=== PATIENT | female | born 1985 | race Caucasian/White ===

== ENCOUNTER 2020-10-19 13:36 | Emergency (ER) | payer SELFPAY ==
[2020-10-19 13:59] VITALS: BP 113/52
[2020-10-19] MEDS ORDERED: ONDANSETRON 4 MG TAB.RAPDIS PO ONE (14:43)
[2020-10-19] MEDS ORDERED: ACETAMINOPHEN 325 MG TABLET PO ONE (14:43)
--- NOTE | 2020-10-19 14:44 | ER Document Report ---
HPI - HPI Time Seen by Provider: 10/19/20 14:38 Pain Level: 3 Past Medical History - Social History Smoking Status: Current Every Day Smoker Frequency of alcohol use: None Course - Vital Signs Vital signs: Temp Pulse Resp BP Pulse Ox 98.4 F 93 20 113/52 L 100 10/19/20 13:58 10/19/20 13:58 10/19/20 13:58 10/19/20 13:58 10/19/20 13:58
--- NOTE | 2020-10-19 14:51 | ER Document Report ---
ED Medical Screen (RME) - General Chief Complaint: Abdominal Pain Stated Complaint: ABDOMINAL PAIN Time Seen by Provider: 10/19/20 14:38 Mode of Arrival: Ambulatory Information source: Patient Notes: HPI; 34-year-old female presents to the emergency room complaining of reflux, headache, abdominal pain, nausea and fatigue for the past 2 weeks. Past medical history significant for Leann's. States she did 3 home test 3 days ago 2+ one negative. She is a 2 para 1. Last menstrual cycle September 14. States she is sexually active with no use of control. No OB care. Has been taking Benadryl with minimal relief. PE: Alert and oriented x3. Lungs: Clear to auscultation without rales, rhonchi, wheezes. Heart: Regular rate rhythm without murmurs, rubs, gallops. I have greeted and performed a rapid initial assessment of this patient. A comprehensive ED assessment and evaluation of the patient, analysis of test results and completion of the medical decision making process will be conducted by additional ED providers. I have specifically instructed the patient or family members with the patient to immediately return to any nursing staff should anything change in the patient's condition or with their chief complaint. TRAVEL OUTSIDE OF THE [place] IN LAST 30 DAYS: No - Related Data Allergies/Adverse Reactions: prochlorperazine [From Compazine] Allergy (Verified 10/19/20 14:37) Sulfa (Sulfonamide Antibiotics) Allergy (Verified 10/19/20 14:37) Past Medical History - Social History Frequency of alcohol use: None Physical Exam - Vital signs Vitals: Temp Pulse Resp BP Pulse Ox 98.4 F 93 20 113/52 L 100 10/19/20 13:58 10/19/20 13:58 10/19/20 13:58 10/19/20 13:58 10/19/20 13:58 Course - Vital Signs Vital signs: Temp Pulse Resp BP Pulse Ox 98.4 F 93 20 113/52 L 100 10/19/20 13:58 10/19/20 13:58 10/19/20 13:58 10/19/20 13:58 10/19/20 13:58
[2020-10-19 15:03] LABS: APPEARANCE,URINE CLEAR; BILIRUBIN,URINE NEGATIVE (NEGATIVE); COLOR,URINE YELLOW; GLUCOSE, URINE NEGATIVE (NEGATIVE); KETONES,URINE NEGATIVE (NEGATIVE); LEUKOCYTE ESTERASE,URINE TRACE (NEGATIVE); NITRITE,URINE NEGATIVE (NEGATIVE); PROTEIN,URINE NEGATIVE (NEGATIVE); URINE SPECIFIC GRAVITY 1.013; UROBILINOGEN,URINE NEGATIVE mg/dL (<2.0)
[2020-10-19 15:40] LABS: ABSOLUTE BASOPHILS # (AUTO) 0.1 10^3/uL (0.0-0.2); ABSOLUTE EOSINOPHILS # (AUTO) 0.2 10^3/uL (0.0-0.6); ABSOLUTE MONOCYTES (AUTO) 0.5 10^3/uL (0.1-1.4); ABSOLUTE NEUT (AUTO) 4.2 10^3/uL (1.7-8.2); BASOPHILS % (AUTO) 0.8 % (0-2); EOSINOPHILS % (AUTO) 2.4 % (0-6); HEMATOCRIT 35.7 % (36.0-47.0); HEMOGLOBIN 12.3 g/dL (12.0-15.5); LYMPHOCYTES % (AUTO) 28.9 % (13-45); MEAN CORPUSCULAR HEMOGLOBIN 31.5 pg (27.0-33.4); MEAN CORPUSCULAR HGB CONC 34.4 g/dL (32.0-36.0); MEAN CORPUSCULAR VOLUME 92 fl (80-97); MONOCYTES % (AUTO) 6.7 % (3-13); PLATELET COUNT 225 10^3/uL (150-450); RED BLOOD COUNT 3.89 10^6/uL (3.72-5.28); SEGMENTED NEUTROPHILS % (AUTO) 61.2 % (42-78); TOTAL CELLS COUNTED % (AUTO) 100 %; WHITE BLOOD COUNT 6.9 10^3/uL (4.0-10.5)
[2020-10-19 16:03] LABS: ALBUMIN 4.3 g/dL (3.5-5.0); ALKALINE PHOSPHATASE 50 U/L (38-126); ANION GAP 7 (5-19); ASPARTATE AMINO TRANSFERASE 22 U/L (14-36); BILIRUBIN,TOTAL 0.9 mg/dL (0.2-1.3); BLOOD UREA NITROGEN 9 mg/dL (7-20); CALCIUM 9.7 mg/dL (8.4-10.2); CARBON DIOXIDE 26 mmol/L (22-30); CHLORIDE 103 mmol/L (98-107); GLUCOSE 90 mg/dL (75-110); POTASSIUM 4.2 mmol/L (3.6-5.0); TOTAL PROTEIN 7.5 g/dL (6.3-8.2)
--- NOTE | 2020-10-19 16:44 | RADIOLOGY REPORT (SQ) ---
EXAM DESCRIPTION: U/S OB TRANSVAG W/DOPPLER IMAGES COMPLETED DATE/TIME: 10/19/2020 4:13 pm REASON FOR STUDY: abdominal pain COMPARISON: None. TECHNIQUE: Transvaginal static and realtime grayscale images acquired of the pelvis. Additional [place] cted spectral and color Doppler images recorded. All images stored on PACs. bHCG: Pending. CLINICAL DATES: LMP 09/15/2020. EGA based on LMP 4 weeks 6 days. PRIMO based on LMP 06/22/2021. LIMITATIONS: None. FINDINGS: FETUS: Single Living intrauterine . ULTRASOUND EGA: 6 weeks 2 days based on MSD. ULTRASOUND PRIMO: 06/12/2021. CRL: Not applicable. FHR: Not applicable. SUBCHORIONIC BLEED: No. SIZE OF BLEED: Not applicable. UTERUS: The uterus measures 8 x 5 x 5 cm. There is intrauterine gestational sac with an MSD of 1.43 cm; there is no embryo or yolk sac. CERVICAL LENGTH: 2 cm. Closed. RIGHT ADNEXA: The right ovary measures 4 x 3 x 2 cm and on Doppler there is intact arterial inflow an d venous outflow within the ovarian stroma. There is a cyst with a thick echogenic rim in the right ovary that measures 2 x 2 x 3 cm ; this could represent a corpus luteum cyst. There is a trace amoun t of free fluid in the right adnexum and in the cul de sac. LEFT ADNEXA: The left ovary measures 3 x 2 x 2 cm and on Doppler there is intact arterial inflow and venous outflow within the ovarian stroma. There is a cyst in the left ovary that measures 2 x 1 x 2 cm. FREE FLUID: None. OTHER: No other findings. IMPRESSION: 1. Intrauterine cystic structure that likely represents an early gestational sac. Ther e is no embryo or yolk sac. Other differential considerations include a failed intrauterine pregnanc y and a pseudo-gestational sac from a nonvisualized ectopic. Correlation with serial beta HCG is rec ommended. 2. Complex cystic lesion in the right ovary that likely represents a corpus luteum cyst. TECHNICAL DOCUMENTATION: JOB ID: [id number] [employer]- All Rights Reserved rev-03/30 Reading location - IP/workstation name: [email or web address]
--- NOTE | 2020-10-19 18:10 | ER Document Report ---
ED GI/ - General Chief Complaint: Abdominal Pain Stated Complaint: ABDOMINAL PAIN Time Seen by Provider: 10/19/20 14:38 Primary Care Provider: RAI SANTIAGO MD [ACTIVE STAFF] - Follow up as needed Mode of Arrival: Ambulatory TRAVEL OUTSIDE OF THE [place] IN LAST 30 DAYS: No - HPI Notes: 10/19/20 20:13 34-year-old female patient presents to ED for evaluation of possible miscarriage. Patient reports lower abdominal pain for the last 2 days. Patient is . That she has taken home test with 1 being positive and 1 being negative. Reports some increased lower cramping. Denies any history of ectopic in the past. Certain of how far along she may be however does report her LMP is roughly 3 or 09/16. Patient does not currently see an HOT STAMP OPERATOR. Patient denies vaginal bleeding, discharge, lesions, sores, burning with urination, chest pain, shortness of breath, back pain, rash, fever, chills, diarrhea, nausea, or vomiting. - Related Data Allergies/Adverse Reactions: prochlorperazine [From Compazine] Allergy (Verified 10/19/20 14:37) Sulfa (Sulfonamide Antibiotics) Allergy (Verified 10/19/20 14:37) Past Medical History - General Information source: Patient - Social History Smoking Status: Current Every Day Smoker Smoking Education Provided: Yes - Advised patient to discontinue smoking in . Frequency of alcohol use: None Family History: None - Medical History Medical History: Other Notes: Depression Psychiatric Medical History: Reports: Hx Depression Review of Systems - Review of Systems Notes: Constitutional: Negative for fever. HENT: Negative for sore throat. Eyes: Negative for visual changes. Cardiovascular: Negative for chest pain. Respiratory: Negative for shortness of breath. Gastrointestinal: Negative for abdominal pain, vomiting or diarrhea. Genitourinary: Negative for dysuria. Musculoskeletal: Negative for back pain. Skin: Negative for rash. Neurological: Negative for headaches, weakness or numbness. 10 point ROS negative except as marked above and in HPI. Physical Exam - Vital signs Vitals: Temp Pulse Resp BP Pulse Ox 98.4 F 93 20 113/52 L 100 10/19/20 13:58 10/19/20 13:58 10/19/20 13:58 10/19/20 13:58 10/19/20 13:58 General: No acute distress. Alert and oriented x3. Sitting comfortably in a stretcher. Skin: No jaundice, pallor, petechiae, or rashes. Warm and dry. HEENT: Normocephalic, atraumatic. Pupils are equal round reactive to light and accommodation. Extraocular movements are intact. TMs without erythema or bulging. Canals are clear. Nares patent without any discharge. Teeth in good condition. Pharynx without erythema, edema, or exudates. Mucous membranes moist. No tonsillar enlargement. Uvula is midline. Airway is patent. Neck: Supple with no lymphadenopathy. Full range of motion. Heart: Regular rate and rhythm. S1,S2. No murmurs, rubs, or gallops. Lungs: Clear to auscultation bilaterally. No wheezes, rhonchi, rales. Equal chest expansion. No retractions. Abdomen: Soft, pain with deep palpation to bilateral lower abdomen, nondistended. Positive bowel sounds in all 4 quadrants. No masses. No CVA tenderness bilaterally. Back: No midline spinal TTP. No paraspinous muscular TTP. Neuro: GCS 15. Moving all extremities without discomfort. Psych: Mood and affect appropriate. Course - Re-evaluation Re-evalutation: 10/19/20 20:16 34-year-old female presents to ED for evaluation of possible miscarriage. Patient reports abdominal pain. Patient was evaluated with CBC, CMP, UA, serum , HCG, and type and screen. CBC unremarkable for anemia. CMP without electrolyte abnormalities. Urine is negative for infection. testing is positive and HCG found to be 7888. Type and screen does not indicate the need f or RhoGam at this time. Patient further evaluated with transvaginal ultrasound which was positive for IUP of 6 weeks and 2 days. No evidence of a heart rate or yolk sac at this time. There is a questionable read about a cyst in the right ovary with fluid around the adnexal region. The radiologist interpreted this as concern for ectopic. I did place a consultation to HOT STAMP OPERATOR on-call Dr. Santiago who presented to the ED to evaluate the itching with myself. He has low suspicion for this and believes that this requires further evaluation with obstetrics over the next 2 days. He recommends repeat ultrasound and quantitative hCG. Instructed to follow up with primary care / HOT STAMP OPERATOR. Patient is provided referrals to HOT STAMP OPERATOR providers. Patient understands indications to return to the ER. Patient is agreeable with this plan. - Vital Signs Vital signs: Temp Pulse Resp BP Pulse Ox 98.4 F 93 20 113/52 L 100 10/19/20 13:58 10/19/20 13:58 10/19/20 13:58 10/19/20 13:58 10/19/20 13:58 - Laboratory Result Diagrams: 10/19/20 15:23 10/19/20 15:23 Laboratory results interpreted by me: 10/19/20 10/19/20 10/19/20 14:48 15:23 15:23 Hct 35.7 L Sodium 135.7 L Beta HCG, Quant 7888.20 H Ur Leukocyte Esterase TRACE H Urine Ascorbic Acid 20 H Discharge - Discharge Clinical Impression: Abdominal pain affecting Condition: Stable Disposition: HOME, SELF-CARE Instructions: Abdominal Pain ([facility]) Additional Instructions: Please follow up with HOT STAMP OPERATOR in the next 1-2 days for repeat US and HCG level. Referrals: RAI SANTIAGO MD [ACTIVE STAFF] - Follow up as needed
== END 2020-10-19 18:30 | disposition home or self-care (01) ==
LOC: ER 13:36
DX: O26.891 Other specified pregnancy related conditions, first trimester (principal); R10.9 Unspecified abdominal pain; R10.30 Lower abdominal pain, unspecified; Z3A.01 Less than 8 weeks gestation of pregnancy; Z88.8 Allergy status to other drugs, medicaments and biological substances; Z88.2 Allergy status to sulfonamides; F17.200 Nicotine dependence, unspecified, uncomplicated
CPT/HCPCS: 36415; 76817; 80053; 81001; 84702; 85025; 86850; 86900; 86901; 93976; 99284